=== PATIENT | male | born 1985 | race African-American/Black ===

== ENCOUNTER 2017-06-16 10:42 | Emergency (ER) | payer OTHER ==
[~2017-06-16] VITALS: Ht 175.3 cm; Wt 117.9 kg
[~2017-06-16 10:42] MED LIST: BACTRIM DS TAB1 EACH PO; KEFLEX500 MG PO; NOHOMEMEDICATIONS
[2017-06-16] MEDS ORDERED: AZITHROMYCIN 2250 MG PO (10:50)
[2017-06-16 11:00] LABS: URINE BILIRUBIN NEGATIVE (Negative); URINE BLOOD NEGATIVE (Negative); URINE CLARITY CLEAR; URINE COLOR YELLOW; URINE GLUCOSE-RANDOM* 3+ (Negative); URINE KETONES NEGATIVE (Negative); URINE LEUKOCYTES NEGATIVE (Negative); URINE NITRITE NEGATIVE (Negative); URINE PROTEIN (DIPSTICK) NEGATIVE (Negative); URINE SPECIFIC GRAVITY <= 1.005 (1.005-1.035); URINE UROBILINOGEN 0.2 E.U./dl (0.2-1.0)
[2017-06-16] MEDS ORDERED: METFORMIN HCL500 MG PO (11:13)
== END 2017-06-16 11:19 | disposition left against medical advice (07) ==
LOC: ER 10:42
PROVIDERS: Physician Assistant
DX: Z20.2 Contact with and (suspected) exposure to infections with a predominantly sexual mode of transmission (principal); R81 Glycosuria; E11.9 Type 2 diabetes mellitus without complications; E66.9 Obesity, unspecified; F17.210 Nicotine dependence, cigarettes, uncomplicated; F10.99 Alcohol use, unspecified with unspecified alcohol-induced disorder; Z68.38 Body mass index [BMI] 38.0-38.9, adult

== ENCOUNTER 2017-12-26 07:13 | Emergency (ER) | payer OTHER ==
[~2017-12-26] VITALS: Ht 172.7 cm; Wt 104.3 kg
[~2017-12-26 07:13] MED LIST changes: +AZITHROMYCIN 2250 MG PO; +METFORMIN HCL500 MG PO
[2017-12-26 07:14] VITALS: BP 140/95
[2017-12-26] MEDS ORDERED: DOXYCYCLINE 10100 MG PO (07:52)
== END 2017-12-26 08:09 | disposition home or self-care (01) ==
LOC: ER 07:13
DX: L02.411 Cutaneous abscess of right axilla (principal); F17.210 Nicotine dependence, cigarettes, uncomplicated; E11.9 Type 2 diabetes mellitus without complications